=== PATIENT | female | born 1980 | race Caucasian/White ===

== ENCOUNTER 2018-02-01 16:03 | Outpatient (CLI) | payer OTHER ==
[2018-02-01] MEDS ORDERED: TYLENOL PO ONE (16:56)
[2018-02-01] MEDS ORDERED: LACTATED RINGERS 1,000 ML IV SCH (17:00)
[2018-02-01 18:44] VITALS: BP 130/70
== END 2018-02-01 18:50 | disposition home or self-care (01) ==
LOC: TRG 16:03
PROVIDERS: ATTEND Obstetrics & Gynecology
DX: O47.1 False labor at or after 37 completed weeks of gestation (principal); O10.913 Unspecified pre-existing hypertension complicating pregnancy, third trimester; Z3A.40 40 weeks gestation of pregnancy
CPT/HCPCS: J7120

== ENCOUNTER 2021-12-12 13:05 | Emergency (ER) | payer SELFPAY | END 2021-12-12 13:10 | disposition left against medical advice (07) | LOC: ED 13:05 | DX: R10.2 Pelvic and perineal pain (principal); Z53.21 Procedure and treatment not carried out due to patient leaving prior to being seen by health care provider ==

== ENCOUNTER 2022-01-12 21:56 | Emergency (ER) | payer SELFPAY ==
[2022-01-12 23:24] LABS: Basophils # (Auto) 0.3 K/mm3 (0.0-0.1); Basophils % (Auto) 2.2 % (0.0-1.8); Eosinophils # (Auto) 0.3 K/mm3 (0.0-0.4); Eosinophils % (Auto) 2.6 % (0.0-4.3); Hematocrit 39.3 % (30.3-42.9); Hemoglobin 13.2 gm/dl (10.1-14.3); Lymphocytes # (Auto) 4.5 K/mm3 (1.2-5.4); Lymphocytes % (Auto) 35.1 % (13.4-35.0); Mean Corpuscular HGB Conc 34 % (30-34); Mean Corpuscular Volume 82 fl (79-97); Monocytes % (Auto) 7.6 % (0.0-7.3); Platelet Count 285 K/mm3 (140-440); Red Blood Count 4.77 M/mm3 (3.65-5.03); Red Cell Distribution Width 18.4 % (13.2-15.2)
[2022-01-13 00:05] LABS: Alanine Aminotransferase 20 units/L (7-56); Albumin 4.5 g/dL (3.9-5); Blood Urea Nitrogen 10 mg/dL (7-17); Calcium 10.3 mg/dL (8.4-10.2); Hemolysis Index 9
[2022-01-13 00:17] LABS: BUN/Creatinine Ratio 14
[2022-01-13 06:20] LABS: Bilirubin,Urine Negative (Negative); Blood,Urine Negative (Negative); Color,Urine Colorless (Yellow); Protein,Urine <15 mg/dL mg/dL (Negative); Urobilinogen,Urine 0.2 mg/dL (<2.0)
[2022-01-13 06:21] LABS: Bacteria,Urine 1+ /HPF (Negative); Mucus,Urine 1+ /HPF; WBC,Urine < 1.0 /HPF (0.0-6.0)
[2022-01-13 06:23] LABS: HCG Qualitative,Urine Negative (Negative)
--- NOTE | 2022-01-13 06:32 | Emergency Department Report ---
ED General Adult HPI - General Chief complaint: Vaginal Bleeding Stated complaint: VAGINAL PAIN/RT SIDE AND RT LEG PAIN Time Seen by Provider: 01/13/22 05:37 Source: patient Mode of arrival: Ambulatory Limitations: No Limitations - History of Present Illness Initial comments: 41-year-old female Korean-speaking (who history of present illness and medical examination was carried out with utilization of the translation line) presents emergency department complaining continue pelvic cramping and dysmenorrhea menorrhea associated with extensive uterine fibroid history does not responding to [id number] motion as recommended by the [employer] she has plans for hysterectomy is due to follow-up with [employer] this week for medication update. She reports no fever, chills, sweats. No chest pain palpitation no nausea, no vomiting no coryza. No new symptoms no trauma that the pain is of a crampy worsening and is worse with palpation and range of motion. -: Gradual Radiation: non-radiation Quality: dull Consistency: constant Worsens with: none Associated Symptoms: denies other symptoms - Related Data Home Medications Medication Instructions Recorded Confirmed Last Taken labetaloL [Normodyne] 200 mg PO BID 02/01/18 02/01/18 1 Day Ago ~01/31/18 Previous Rx's Medication Instructions Recorded Last Taken Type Ketorolac [Toradol] 10 mg PO Q6H PRN #15 tablet 01/13/22 Unknown Rx traMADoL [Ultram] 50 mg PO Q6HR PRN #20 tablet 01/13/22 Unknown Rx Allergies Allergy/AdvReac Type Severity Reaction Status Date / Time No Known Allergies Allergy Unverified 02/01/18 16:54 ED Review of Systems ROS: Stated complaint: VAGINAL PAIN/RT SIDE AND RT LEG PAIN Other details as noted in HPI Comment: All other systems reviewed and negative ED Past Medical Hx - Past Medical History Previous Medical History?: Yes Hx Hypertension: Yes Hx Deep Vein Thrombosis: No Hx Renal Disease: No Hx Sickle Cell Disease: No Hx Seizures: No - Surgical History Past Surgical History?: Yes Additional Surgical History: tummy tuck - Social History Smoking Status: Never Smoker Substance Use Type: None - Medications Home Medications: Home Medications Medication Instructions Recorded Confirmed Last Taken Type labetaloL [Normodyne] 200 mg PO BID 02/01/18 02/01/18 1 Day Ago History ~01/31/18 Ketorolac [Toradol] 10 mg PO Q6H PRN #15 tablet 01/13/22 Unknown Rx traMADoL [Ultram] 50 mg PO Q6HR PRN #20 tablet 01/13/22 Unknown Rx ED Physical Exam - General Limitations: No Limitations General appearance: alert, in no apparent distress - Head Head exam: Present: atraumatic, normocephalic - Eye Eye exam: Present: normal appearance - ENT ENT exam: Present: normal exam, normal orophraynx, mucous membranes dry, mucous membranes moist, TM's normal bilaterally - Neck Neck exam: Present: normal inspection, full ROM, lymphadenopathy - Respiratory Respiratory exam: Present: normal lung sounds bilaterally. Absent: respiratory distress, wheezes, rales, chest wall tenderness, accessory muscle use, decreased breath sounds - Cardiovascular Cardiovascular Exam: Present: regular rate, normal rhythm. Absent: systolic murmur, diastolic murmur, rubs, gallop - GI/Abdominal GI/Abdominal exam: Present: soft, tenderness, normal bowel sounds. Absent: guarding, hyperactive bowel sounds, hypoactive bowel sounds - Extremities Exam Extremities exam: Present: normal inspection, full ROM, normal capillary refill - Back Exam Back exam: Present: normal inspection. Absent: CVA tenderness (R), CVA tenderness (L) - Neurological Exam Neurological exam: Present: alert, oriented X3, CN II-XII intact, normal gait - Psychiatric Psychiatric exam: Present: normal affect, normal mood. Absent: anxious, flat affect - Skin Skin exam: Present: warm, dry, intact, normal color. Absent: rash, cyanosis, erythema, urticaria ED Course Vital Signs 01/12/22 01/13/22 22:46 06:58 Temperature 97.4 F L 98.2 F Pulse Rate 67 66 Respiratory 16 18 Rate Blood Pressure 126/70 Blood Pressure 132/99 [Right] O2 Sat by Pulse 99 99 Oximetry ED Medical Decision Making - Lab Data Result diagrams: 01/12/22 23:02 01/12/22 23:02 - Medical Decision Making 40-year-old female with known history of uterine fibroids having multiple evaluations having some issues with pain and bleeding with with report of anemia. Labs did not show any evidence of anemia or any obvious or occult infectious process. Has been advised to follow-up with [employer] for definitive treatment of the perforation Critical care attestation.: If time is entered above; I have spent that time in minutes in the direct care of this critically ill patient, excluding procedure time. ED Disposition Clinical Impression: Uterine fibroid Disposition: 01 HOME / SELF CARE / HOMELESS Is pt being admited?: No Does the pt Need Aspirin: No Condition: Stable Prescriptions: Ketorolac [Toradol] 10 mg PO Q6H PRN #15 tablet PRN Reason: Pain traMADoL [Ultram] 50 mg PO Q6HR PRN #20 tablet PRN Reason: Pain Referrals: ENRRIQUE PYLE MD [Primary Care Provider] - 3-5 Days
[2022-01-13 07:03] VITALS: BP 132/99
== END 2022-01-13 07:04 | disposition home or self-care (01) ==
LOC: ED 21:56
DX: D25.9 Leiomyoma of uterus, unspecified (principal); I10 Essential (primary) hypertension; Z98.890 Other specified postprocedural states
CPT/HCPCS: 36415; 80053; 81001; 81025; 85025; 99283

== ENCOUNTER 2022-02-23 05:59 | Inpatient (IN) | payer OTHER ==
[2022-02-22 10:56] LABS: Hematocrit 38.7 % (30.3-42.9); Hemoglobin 12.8 gm/dl (10.1-14.3); Mean Corpuscular HGB Conc 33 % (30-34); Mean Corpuscular Volume 85 fl (79-97); Platelet Count 297 K/mm3 (140-440); Red Blood Count 4.57 M/mm3 (3.65-5.03); Red Cell Distribution Width 16.7 % (13.2-15.2)
[2022-02-22 11:11] LABS: Blood Urea Nitrogen 10 mg/dL (7-17); Calcium 9.7 mg/dL (8.4-10.2); Hemolysis Index 20
[2022-02-22 11:12] LABS: BUN/Creatinine Ratio 20
--- NOTE | 2022-02-22 12:03 | Anesthesia Consultation ---
Anesthesia Consult and Med Hx Date of service: 02/23/22 - Airway Anesthetic Teeth Evaluation: Good, Dentures (upper) ROM Head & Neck: Adequate Mental/Hyoid Distance: Adequate Mallampati Class: Class III Intubation Access Assessment: Possibly Difficult - Pulmonary Exam CTA: Yes - Cardiac Exam Cardiac Exam: RRR - Pre-Operative Health Status ASA Pre-Surgery Classification: ASA2 Proposed Anesthetic Plan: General Nerve Block: TAP - Pulmonary Hx Smoking: No Hx Respiratory Symptoms: No - Cardiovascular System Hx Hypertension: Yes - Central Nervous System CVA: No - Endocrine Hx Renal Disease: No Hx Liver Disease: No Hx Insulin Dependent Diabetes: No Hx Non-Insulin Dependent Diabetes: No Hx Thyroid Disease: No - Hematic Hx Anemia: Yes (Fe infusions) - Additional Comments Anesthesia Medical History Comments: No hx anesthetic complications.
--- NOTE | 2022-02-23 00:31 | History and Physical Report ---
History of Present Illness Date of examination: 02/23/22 Chief complaint: 41-year-old female with symptomatic uterine fibroids with desire for definitive treatment after failed medical management. History of present illness: 41-year-old Female with a history of 3 C-sections and abdominoplasty having complaints of chronic pelvic pain requiring multiple ER visits and pain medication. Additionally patient also complains of heavy vaginal bleeding and has failed multiple forms of medical management to control it. At this time after being thoroughly counseled about her options she has opted to have definitive therapy for this condition via a total abdominal hysterectomy. Patient was made aware of the risks and benefits and all of her questions were answered. Of note patient also has a history of controlled chronic hypertension for which she takes lisinopril. speaks little to no Ukrainian and her speaks minimal Ukrainian. Her 20-year-old son provides interpretation for both patient and her . [employer]: PAP wnl EMBX : benign US: 14 week sized uterus with multiple fibroids Thickened EMS. left ovarian cyst with benign appearance. PMH: CHTN PSH C/S x3 uncomplicated; abdominoplasty no complications with anesthesia SOC: Denies T/E/D L/W and children Past History Past Medical History: hypertension (Lisinopril for CHTN) Past Surgical History: section, other (C/Section x 3 ; abdominoplasty) [employer] History: fibroids, other (chronic pelvic pain ; abnormal uterine bleeding.) Family/Genetic History: none Social history: , lives with family, full code - Obstetrical History : 6 Para: 3 Hx # Term Pregnancies: 3 Number of Pregnancies: 0 Spontaneous Abortions: 3 Induced : 0 Number of Living Children: 3 Medications and Allergies Allergies Allergy/AdvReac Type Severity Reaction Status Date / Time No Known Allergies Allergy Verified 02/22/22 11:31 Home Medications Medication Instructions Recorded Confirmed Last Taken Type Lisinopril [Zestril] 5 mg PO QDAY 02/22/22 02/22/22 Unknown History Active Meds: Active Medications Acetaminophen (Acetaminophen 500 Mg Tab) 1,000 mg PO PREOP LULA Stop: 02/23/22 23:59 Celecoxib (Celecoxib 200 Mg Cap) 200 mg PO PREOP NR Stop: 02/23/22 23:59 Fentanyl (Fentanyl 100 Mcg/2 Ml Inj) 100 mcg IV ONCE PRN PRN Reason: sedation for nerve block Stop: 02/23/22 23:59 Gabapentin (Gabapentin 300 Mg Cap) 300 mg PO PREOP NR Stop: 02/23/22 23:59 Lactated Ringer's (Lactated Ringers) 1,000 mls @ 100 mls/hr IV DIRECT LULA Stop: 02/23/22 23:59 Cefazolin Sodium (Ancef/Sterile Water 2 Gm/20 Ml) 2 gm in 20 mls @ 80 mls/hr IV PREOP NR; Protocol Stop: 02/23/22 23:59 Tranexamic Acid 1,000 mg/ (Sodium Chloride) 110 mls @ 100 mls/30 min IV ONCE NR Stop: 02/23/22 23:59 Methocarbamol (Methocarbamol 500 Mg Tab) 750 mg PO PREOP LULA Stop: 02/23/22 23:59 Midazolam HCl (Midazolam 2 Mg/2 Ml Inj) 2 mg IV PREOP NR Stop: 02/23/22 23:59 Scopolamine (Scopolamine Transdermal Patch 72 Hr) 1 each TD PREOP NR Stop: 02/23/22 23:59 Review of Systems Constitutional: weakness, chronic pain Eyes: deferred Ears, nose, mouth and throat: deferred Cardiovascular: high blood pressure Gastrointestinal: abdominal pain Genitourinary: normal appearance, vaginal bleeding, pelvic pain Rectal Exam: deferred, normal exam-external/orifice Musculoskeletal: low back pain Integumentary: deferred - Vital Signs Vital signs: Vital Signs Temp Pulse Resp BP Pulse Ox 98.1 F 72 16 132/85 97 02/22/22 10:00 02/22/22 10:00 02/22/22 10:00 02/22/22 10:00 02/22/22 10:00 Temp Pulse Resp BP Pulse Ox 98.1 F 72 16 132/85 97 02/22/22 10:00 02/22/22 10:00 02/22/22 10:00 02/22/22 10:00 02/22/22 10:00 - Physical Exam Breasts: Cardiovascular: Regular rate, Normal S1, Normal S2 Abdomen: Positive: normal appearance, soft, normal bowel sounds. Negative: distention, tenderness Vulva: both: normal Vagina: Positive: normal moisture. Negative: discharge Cervix: Negative: lesion, discharge Uterus: Positive: normal size, enlarged, normal contour, nodular, tender Adnexa: both: normal Anus/Rectum: Positive: normal perianal skin, heme negative. Negative: rectal mass, hemorrhoids Extremities: Deep Tendon Reflex Grade: Normal +2 Results Result Diagrams: 02/22/22 10:10 02/22/22 10:10 Abnormal lab results 02/22/22 02/22/22 Range/Units 10:10 10:10 WBC 12.1 H (4.5-11.0) K/mm3 RDW 16.7 H (13.2-15.2) % Creatinine 0.5 L (0.6-1.2) mg/dL Glucose 110 H (65-100) mg/dL All other labs normal. Ultrasound: report reviewed (Enlarged 14 week uterus; thickened EMS st 20 mm ;multiple fibroids; Left ovarian cyst with benign appearance. PAP wnl ; Endometrial biopsy benign.) Assessment and Plan - Patient Problems (1) History of 3 sections Status: Acute Plan to address problem: Possibly associated with chronic pelvic pain and adenomyosis. Patient is aware that pain may still persist after hysterectomy. She is also aware of the possibility of scar tissue and associated with complications. Need for drain placement will be considered. (2) History of abdominoplasty Status: Acute Plan to address problem: May be associated with pain and patient is aware that she may continue to have pain associated with this procedure after RADHA/postoperative course is completed at the end of 6 weeks. (3) Abnormal uterine bleeding (AUB) Status: Acute Plan to address problem: Definitive treatment via RADHA as patient was found to have an enlarged uterus with multiple fibroids. Patient is aware that it may have to be supracervical if there is scar tissue whiich may compromise ability to perform colpotomy without complications. (4) Chronic pelvic pain in female Status: Chronic Plan to address problem: Definitive surgery via RADHA will most likely result is some resolution of pain although extent is unknown and resolution cannot be guaranteed. (5) Uterine leiomyoma Status: Acute Qualifiers: Uterine leiomyoma location: intramural, submucous, and subserous Qualified Code(s): D25.1 - Intramural leiomyoma of uterus; D25.0 - Submucous leiomyoma of uterus; D25.2 - Subserosal leiomyoma of uterus Plan to address problem: Definitive treatment via RADHA and any other indicated procedures.
[~2022-02-23 05:59] MED LIST: TRANEXAMIC ACID 1,000 MG in SODIUM CHLORIDE 0.9% 100 ML IV NR; ceFAZolin/Water 2 GM/20 ML 2 GM/20 ML SYRINGE IV NR
[2022-02-23] MEDS ORDERED: MIDAZOLAM 2 MG/2 ML INJ IV NR (06:00)
[2022-02-23] MEDS ORDERED: SCOPOLAMINE TRANSDERMAL PATCH 72 HR TD NR (06:00)
[2022-02-23] MEDS ORDERED: CELECOXIB 200 MG CAP PO NR (06:00)
[2022-02-23] MEDS ORDERED: ACETAMINOPHEN 500 MG TAB PO SCH (06:00)
[2022-02-23] MEDS ORDERED: fentaNYL 100 MCG/2 ML INJ IV PRN (06:00)
[2022-02-23] MEDS ORDERED: GABAPENTIN 300 MG CAP PO NR (06:00)
[2022-02-23] MEDS ORDERED: BACTERIOSTATIC SODIUM CHLORIDE 0.9% 30 ML VIAL INFILTRATI ONE (06:50)
[2022-02-23] MEDS: LACTATED RINGERS 1,000 ML IV SCH ×2 (07:00→16:55)
[2022-02-23] MEDS ORDERED: ROCURONIUM 50 MG/5 ML INJ IV ONE ×2 (07:26→09:49)
[2022-02-23] MEDS ORDERED: LIDOCAINE MPF (2%) 20 MG/1 ML VIAL 5 ML ONE (07:26)
[2022-02-23] MEDS ORDERED: MIDAZOLAM 2 MG/2 ML INJ ONE (07:26)
[2022-02-23] MEDS ORDERED: fentaNYL 100 MCG/2 ML INJ ONE (07:27)
[2022-02-23] MEDS ORDERED: propofoL 200 MG/20 ML VIAL IV ONE (07:27)
[2022-02-23] MEDS ORDERED: KETAMINE/STERILE WATER 50 MG/ML SYRINGE ONE (07:28)
--- NOTE | 2022-02-23 07:32 | Anesthesia Day of Surgery ---
Anesthesia Day of Surgery - Day of Surgery Patient Examined: Yes Patient H&P Reviewed: Yes Patient is NPO: Yes
[2022-02-23] MEDS ORDERED: HYDROmorphone 0.5 MG/0.5 ML INJ IV PRN (07:37)
[2022-02-23] MEDS ORDERED: ONDANSETRON 4 MG/2 ML INJ IV PRN ×2 (07:37→12:00)
[2022-02-23] MEDS ORDERED: TRANEXAMIC ACID 1,000 MG/10 ML ONE (07:39)
[2022-02-23] MEDS ORDERED: BUPIVACAINE/PF (0.25%) 2.5 MG/ML 30 ML VIAL INFILTRATI ONE (07:39)
[2022-02-23] MEDS ORDERED: ANTICOAGULANT SOD CITRATE SOLUTION MC ONE (07:57)
[2022-02-23] MEDS ORDERED: PHENYLEPHRINE/NS 1,000 MCG/10 ML SYRINGE (OR USE) IV ONE (09:12)
[2022-02-23] MEDS ORDERED: SODIUM CHLORIDE 0.9% IRR 1,500 ML BOTTLE IR ONE ×2 (09:36)
[2022-02-23] MEDS ORDERED: dexAMETHasone 20 MG/5 ML VIAL ONE (10:11)
[2022-02-23] MEDS ORDERED: KETOROLAC 30 MG/1 ML INJ ONE (10:11)
[2022-02-23] MEDS ORDERED: ONDANSETRON 4 MG/2 ML INJ ONE (10:11)
[2022-02-23] MEDS ORDERED: GLYCOPYRROLATE 0.4 MG/2 ML INJ ONE (10:47)
[2022-02-23] MEDS ORDERED: NEOSTIGMINE 10MG/10 ML INJ MDV ONE (10:47)
[2022-02-23] MEDS ORDERED: NALOXONE 0.4 MG/1 ML INJ IV PRN (12:00)
[2022-02-23] MEDS ORDERED: KETOROLAC 30 MG/1 ML INJ IV PRN (12:00)
[2022-02-23] MEDS ORDERED: ACETAMINOPHEN 325 MG TAB PO PRN (12:00)
--- NOTE | 2022-02-23 13:04 | Post Anesthesia Evaluation ---
- Post Anesthesia Evaluation Patient Participated: Yes Airway Patent: Yes Stable Respiratory Function: Yes Nausea/Vomiting: No Temp > 96.8F: Yes Pain Manageable: Yes Adequeate Hydration: Yes Anesthesia Complications: No
[2022-02-23] MEDS: MORPHINE 4 MG/1 ML INJ IV PRN (13:40)
[2022-02-23] MEDS: oxyCODONE /ACETAMINOPHEN 5-325MG TAB PO SCH ×2 (16:51→21:46)
[2022-02-23] MEDS: ceFAZolin/NS 1 GM/50 ML 1 GM/50 ML BAG IV SCH (16:54)
[2022-02-24] MEDS: ceFAZolin/NS 1 GM/50 ML 1 GM/50 ML BAG IV SCH (02:04)
[2022-02-24] MEDS: oxyCODONE /ACETAMINOPHEN 5-325MG TAB PO SCH ×6 (02:04→21:00)
[2022-02-24 06:24] LABS: Hematocrit 34.8 % (30.3-42.9); Hemoglobin 11.4 gm/dl (10.1-14.3)
[2022-02-24 06:37] LABS: Blood Urea Nitrogen 10 mg/dL (7-17); Calcium 8.7 mg/dL (8.4-10.2); Hemolysis Index 3
[2022-02-24 06:42] LABS: BUN/Creatinine Ratio 20
--- NOTE | 2022-02-24 09:31 | Operative Report ---
Operative Report Operative Report: Date of surgery February 23, 2022 Preoperative diagnosis: 1. Uterine fibroids 2. Abnormal uterine bleeding 3. Chronic pelvic pain 4. History of C-sections x3 5. History of abdominoplasty Postoperative diagnosis:1. Uterine fibroids 2. Abnormal uterine bleeding 3. Chronic pelvic pain 4. History of C-sections x3 5. History of abdominoplasty 6. S/P Hysterectomy with bilateral salp hingectomy Surgeon: Unique Nelson MD Procedure: 1. Exam under anesthesia 2. Total abdominal hysterectomy with bilateral salpingectomy Wash Crew Person: St. Shannon MD Anesthesia: General endotracheal IVF: 2400 cc LR Urine output: 65 cc of clear urine Estimated blood loss: 300 cc with 125 cc returned via Cell Saver Specimens: Uterus and fallopian tubes Findings: Enlarged bulbous uterus with fibroids; normal ovaries; normal fallopian tubes; no issues encountered with previous abdominoplasty Procedure in detail: After being fully consented and made aware of the risks and benefits of the procedure as well as answering all of her questions, patient was taken to the operating room where she was placed in dorsal supine position. After the appropriate timeout was taken induction of anesthesia was performed without complication. She was then prepped and draped in a normal sterile fashion after an exam under anesthesia was performed. Once the appropriate operative timeout was taken a conversant incision was made with a scalpel immediately above the abdominoplasty scar. A small indentation of the scar was noted and avoided. This Pfannenstiel incision was then carried down to the fascia with the Bovie on cut cauterizing bleeders that were encountered. Once the fascia was observed it was nicked in the midline with the Bovie on cut and the incision was then extended bilaterally with the pickups with teeth and Collado scissors. 2 Verna clamps were placed on the fascia in the midline and the linea alba was dissected off of the overlying fascia with excellent hemostasis. Attention was then turned to the inferior aspect of the incision which in a similar fashion was grasped with 2 Verna clamps and the midline and the underlying pyramidalis muscles were dissected off of the overlying fascia. Attention was then turned to the midline of the rectus muscles via the linea alba it was dissected down to the peritoneum once the peritoneum was observed it was nicked in the midline and the incision was then extended inferiorly carefully avoiding the bladder and superiorly carefully avoiding the the bowel. Once this was done tension was applied to the overlying rectus muscles and underlying peritoneum with good visualization of a large bulbous uterus containing fibroids which were palpated in the myometrium. There was no scar tissue encountered intra-abdominally. A retractor was placed after the bowel was directed away from the uterus via laparotomy sponges and a moistened towel. Care was taken to avoid tension on the abdominal muscles and overlying skin. The uterus was then grasped with 2 single-tooth tenaculum and elevated. The fallopian tube was then grasped with a Hobgood clamp on the right side elevated and LigaSure impact electrocautery device was used to dissected off of the underlying mesosalpinx with close approximation to the fallopian tube. This was done with excellent hemostasis. The normal appearing ovary was then dissected off of the uterus via the different uteroovarian ligament utero-ovarian. The same procedure was carried out on the contralateral left side and this was done with excellent hemostasis. Bilaterally the initial impact device was used to dissect the uterus off of the round ligament and was released cauterized the uterine arteries. This was performed with excellent hemostasis the excision of the uterus was then carried down to the cardinal ligaments with excellent hemostasis. Once this was done the cervix was palpated and right angle clamps were used to perform the colpotomy after careful placement bilaterally. Norbert scissors were used to excise the uterus and the cervix from the uterosacral ligaments. Of note the body of the uterus was excised for better visualization of the lower pelvic anatomy. After this unintentional transportation issues involving the aortic root ligaments were performed bilaterally. [id number] sutures were then used to reapproximate the vaginal cuff. Irrigation was used to check for bleeders of which there were none. Hemabate powder was used for further reinforcement of hemostasis. The retractor was then removed and laparotomy sponge counts and instrument count were performed and all instruments and sponges were accounted for. The peritoneum and then over the reapproximated using 2-0 Vicryl suture with excellent hemostasis carefully avoiding the bowel and the bladder. The fascial incision was then reapproximated using 0 Vicryl suture in a running fashion with excellent hemostasis. The subcutaneous fatty layer was irrigated and checked for bleeders of which there were none. The subcutaneous fatty layer was reapproximated via Lien's fascia using 2-0 Vicryl suture in a running fashion with excellent hemostasis. The skin was then reapproximated using 3-0 Monocryl suture with excellent hemostasis. A pressure dressing was applied. All counts were correct patient was successfully extubated and was returned to PACU stable condition. Of note urine output increased from 65cc to an acceptable amount and continue to be clear in the PACU.
[2022-02-24] MEDS: IBUPROFEN 800 MG TAB PO PRN ×2 (09:36→19:44)
[2022-02-24] MEDS: MORPHINE 4 MG/1 ML INJ IV PRN (21:05)
[2022-02-25] MEDS: oxyCODONE /ACETAMINOPHEN 5-325MG TAB PO SCH ×4 (02:53→15:25)
--- NOTE | 2022-02-25 07:56 | Progress Note ---
Assessment and Plan - Patient Problems (1) History of 3 sections Current Visit: No Status: Inactive (2) History of abdominoplasty Current Visit: No Status: Inactive (3) Abnormal uterine bleeding (AUB) Current Visit: No Status: Resolved (4) Chronic pelvic pain in female Current Visit: No Status: Resolved (5) Uterine leiomyoma Current Visit: No Status: Resolved Qualifiers: Uterine leiomyoma location: intramural, submucous, and subserous Qualified Code(s): D25.1 - Intramural leiomyoma of uterus; D25.0 - Submucous leiomyoma of uterus; D25.2 - Subserosal leiomyoma of uterus (6) Status post abdominal hysterectomy Current Visit: Yes Status: Acute (7) Status post bilateral salpingectomy Current Visit: Yes Status: Acute Subjective Date of service: 02/25/22 Principal diagnosis: Status post RADHA/bilateral salpingectomy Interval history: POD #2 Patient is without complaints Denies NVFC Adequate pain control however had some pain overnight and got percocet with good resolution. +OOB/AMB Tolerating regular diet although not eating much. +Incentive spirometry. Patient states that she has not passed gas but does not feel bloated. Would like to be discharged today. Objective - Constitutional Vitals: Vital Signs - 12hr 02/24/22 02/24/22 02/24/22 20:15 21:05 22:00 Temperature 98.1 F Pulse Rate 76 Respiratory 20 20 Rate Blood Pressure 126/80 O2 Sat by Pulse 100 100 Oximetry 02/25/22 02/25/22 02/25/22 00:26 02:53 04:15 Temperature 98.5 F 98.1 F Pulse Rate 91 H 87 Respiratory 18 20 20 Rate Blood Pressure 129/77 152/87 O2 Sat by Pulse 96 96 Oximetry General appearance: Present: no acute distress, well-nourished - EENT Eyes: PERRL, EOM intact ENT: hearing intact, clear oral mucosa Ears: bilateral: normal - Neck Neck: supple, normal ROM - Respiratory Respiratory effort: normal Respiratory: bilateral: CTA - Breasts Breasts: normal - Cardiovascular Rhythm: regular Heart Sounds: Present: S1 & S2. Absent: gallop, rub Extremities: pulses intact, No edema, normal color, Full ROM - Gastrointestinal General gastrointestinal: Present: soft, non-tender, non-distended, normal bowel sounds, other (Incision clean dry and intact) Rectal Exam: deferred - Genitourinary Female genitourinary: normal - Integumentary Integumentary: clear, warm, dry - Musculoskeletal Musculoskeletal: 1, strength equal bilaterally - Neurologic Neurologic: moves all extremities - Psychiatric Psychiatric: memory intact, appropriate mood/affect, intact judgment & insight - Labs CBC & Chem 7: 02/24/22 05:08 02/24/22 05:08 Medications & Allergies - Medications Allergies/Adverse Reactions: Allergies No Known Allergies Allergy (Verified 02/22/22 11:31) Home Medications: Home Medications Medication Instructions Recorded Confirmed Last Taken Type Lisinopril [Zestril] 5 mg PO QDAY 02/22/22 02/23/22 02/22/22 09:00 History Active Medications: Generic Name Dose Route Start Last Admin Trade Name Freq PRN Reason Stop Dose Admin Acetaminophen 650 mg 02/23/22 12:00 Acetaminophen 325 Mg Tab PO Q4H PRN Pain, Mild (1-3) Bisacodyl 10 mg 02/23/22 12:00 Bisacodyl 10 Mg Rect Supp VA QDAY PRN Constip unreliev by MOM/or NPO Ibuprofen 800 mg 02/23/22 12:00 02/24/22 19:44 Ibuprofen 800 Mg Tab PO 800 mg Q8H PRN Administration Pain, Moderate (4-6) Ketorolac Tromethamine 30 mg 02/23/22 12:00 02/23/22 15:21 Ketorolac 30 Mg/1 Ml Inj IV 02/28/22 11:59 30 mg Q6H PRN Administration Pain, Moderate (4-6) Morphine Sulfate 4 mg 02/23/22 12:00 02/24/22 21:05 Morphine 4 Mg/1 Ml Inj IV 4 mg Q4H PRN Administration Pain , Severe (7-10) Naloxone HCl 0.1 mg 02/23/22 12:00 Naloxone 0.4 Mg/1 Ml Inj IV Q2MIN PRN Res Rate </= 8 or 02 SAT < 92% Ondansetron HCl 4 mg 02/23/22 12:00 02/25/22 01:31 Ondansetron 4 Mg/2 Ml Inj IV 4 mg Q8H PRN Administration Nausea And Vomiting Oxycodone/Acetaminophen 2 tab 02/23/22 17:00 02/25/22 05:00 Oxycodone /Acetaminophen 5-325mg Tab PO Not Given Q4H LULA HEART Score - HEART Score History: Slightly suspicious EKG: Normal Age: < 45 Risk factors: 1-2 risk factors - Critical Actions Critical Actions: 0-3 pts:0.9-1.7%risk of adverse cardiac event.Candidate for discharge
[2022-02-25] MEDS ORDERED: SIMETHICONE 80 MG CHEW TAB PO PRN (08:30)
[2022-02-25 18:18] VITALS: BP 109/51
== END 2022-02-25 18:57 | disposition home or self-care (01) | DRG 743 ==
LOC: 3A 05:59 → OB 12:19
PROVIDERS: ADMIT Obstetrics & Gynecology; ATTEND Obstetrics & Gynecology
PROC: 0UT90ZZ Resection of Uterus, Open Approach (ICD-10-PCS; principal; 2022-02-23)
PROC: 0UT70ZZ Resection of Bilateral Fallopian Tubes, Open Approach (ICD-10-PCS; 2022-02-23)
DX: D25.1 Intramural leiomyoma of uterus (principal); D25.0 Submucous leiomyoma of uterus; D25.2 Subserosal leiomyoma of uterus; Z20.822 Contact with and (suspected) exposure to COVID-19; N93.9 Abnormal uterine and vaginal bleeding, unspecified; Z98.890 Other specified postprocedural states; I10 Essential (primary) hypertension
CPT/HCPCS: 36415; 64450; 80048; 84703; 85014; 85018; 85027; 86850; 86900; 86901; 88307; G0378; J1815; J3490; J7121; J0690; J1100; J1170; J1885; J2250; J2270; J2370; J2405; J2704; J2710; J3010; J7120; U0003